=== PATIENT | female | born 1965 | race Caucasian/White ===

== ENCOUNTER → 2016-06-15 | Day surgery (SDC) | payer OTHER ==
[~2016-06-15] VITALS: Ht 170.2 cm; Wt 57.3 kg
[~2016-06-15] MED LIST: CA C1TAB86 PO; CHOL100043 PO; DOCU-42 PO; ESTR1PAT10 TD; FISH1CAP16 PO; MOT200T1 PO; NOMED; OSPE60TA2 PO; OXYC-176 PO; Zoledronic Acid 5 mg/100 mL Premix IV ONE
[2016-06-15 11:15] VITALS: BP 106/62; PULSE 59; RESP 16; O2SAT 100
--- NOTE | 2016-06-15 11:36 | NUR ---
Reclast Patient arrived to unit independently. Denies pain, nausea or chest discomfort. Carenotes and side effects of medication reviewed with patient. No questions. Reclast infused without adverse reaction. Left unit in stable condition, without future appointment.
== END | disposition home or self-care (01) ==
LOC: MOCO 05-17 07:48
PROVIDERS: ATTEND Family Medicine
DX: M81.0 Age-related osteoporosis without current pathological fracture (principal)
CPT/HCPCS: 96365; J3489